=== PATIENT | male | born 1935 | race Asian ===

== ENCOUNTER 2023-04-09 12:41 | Inpatient (IN) | payer MEDICARE ==
[~2023-04-09] VITALS: Ht 165.1 cm; Wt 49.9 kg
[2023-04-09 13:48] LABS: BASOPHILS # (AUTO) 0.1 K/uL (0.0-0.2); BASOPHILS % (AUTO) 1.4 % (0.0-2.0); EOSINOPHILS # (AUTO) 0.2 K/uL (0.0-0.7); EOSINOPHILS % (AUTO) 3.8 % (0.0-6.0); HEMATOCRIT 31 % (39-51); HEMOGLOBIN 10.4 g/dL (13.5-17.5); LYMPHOCYTES # (AUTO) 0.7 K/uL (0.8-4.8); LYMPHOCYTES % (AUTO) 12.6 % (20.0-44.0); MEAN CORPUSCULAR HEMOGLOBIN 32 PG (26.0-33.0); MEAN CORPUSCULAR HGB CONC 34 g/dl (31.0-36.0); MEAN CORPUSCULAR VOLUME 95 fL (80-96); MONOCYTES # (AUTO) 0.2 K/uL (0.1-1.30); MONOCYTES % (AUTO) 4.4 % (2.0-12.0); NEUTROPHILS # (AUTO) 4.1 K/uL (1.8-8.9); NEUTROPHILS % (AUTO) 77.8 % (43.0-81.0); PLATELET COUNT (AUTO) 204 K/uL (150-450); RED BLOOD CELL COUNT(AUTO) 3.22 MIL/uL (4.5-6.0); RED CELL DISTRIBUTION WIDTH 15.2 % (11.5-15.0); WHITE BLOOD COUNT (AUTO) 5.2 K/uL (4.3-11.0)
[2023-04-09 14:00] LABS: INR 1.03 (0.91-1.10); PARTIAL THROMBOPLASTIN TIME 27.5 SEC (24.3-34.3); PROTHROMBIN TIME 10.9 SECS (9.2-11.1)
[2023-04-09 14:03] LABS: CALCIUM, SERUM 8.9 mg/dL (8.5-10.1); CARBON DIOXIDE 25 mmol/L (21-32); CHLORIDE 103 mmol/L (98-107); GLUCOSE 127 mg/dL (74-106); POTASSIUM 3.8 mmol/L (3.5-5.1); SODIUM SERUM 135 mmol/L (136-145); UREA NITROGEN, BLOOD 28 mg/dL (7-18)
[2023-04-09] MEDS ORDERED: RAMI10CA69 PO (15:13)
[2023-04-09] MEDS ORDERED: ASPI-1169 PO (15:13)
[2023-04-09] MEDS ORDERED: POLY17PO4 PO (15:13)
[2023-04-09] MEDS ORDERED: SPIR25TA6 PO (15:13)
[2023-04-09] MEDS ORDERED: CALC500T52 PO (15:13)
[2023-04-09] MEDS ORDERED: METO25TA20 PO (15:13)
[2023-04-09] MEDS ORDERED: OMEG1CAP PO (15:13)
[2023-04-09] MEDS ORDERED: MULT-447 PO (15:13)
[2023-04-09] MEDS ORDERED: FLAX100032 PO (15:13)
[2023-04-09] MEDS ORDERED: ROSU20TA32 PO (15:13)
[2023-04-09] MEDS ORDERED: IBUP200C5 PO (15:13)
[2023-04-09] MEDS ORDERED: DOCU-141 PO (15:13)
[2023-04-09] MEDS ORDERED: AMLO2.5T4 PO (15:13)
[2023-04-09] MEDS ORDERED: MORPHINE SULFATE INJ 2 MG/ML DISP.SYRIN ONE (16:53)
[2023-04-09] MEDS: MORPHINE SULFATE INJ 2 MG/ML DISP.SYRIN IV ONE (17:14)
[2023-04-09] MEDS ORDERED: MAG HYDROX/AL HYDROX/SIMETH 30 ML UDC PO PRN (18:00)
[2023-04-09] MEDS ORDERED: ONDANSETRON HCL/PF 4 MG/2 ML VIAL IVP PRN (18:00)
[2023-04-09] MEDS ORDERED: MAGNESIUM HYDROXIDE 30 ML UDC PO PRN (18:00)
[2023-04-09] MEDS ORDERED: hydrALAZINE HCL IV 20 MG VIAL IV PRN (18:00)
[2023-04-09] MEDS: ATORVASTATIN 40 MG TABLET PO SCH (18:30)
[2023-04-09 20:20] VITALS: BP 141/79; TEMP 97.3; O2SAT 97
[2023-04-09 20:30] VITALS: BP 141/79; TEMP 97.3; O2SAT 97
[2023-04-09] MEDS: AMLODIPINE BESYLATE 5 MG TABLET PO SCH (22:00)
[2023-04-10] VITALS: BP 123/76; TEMP 97.7; O2SAT 98
[2023-04-10] MEDS: MORPHINE SULFATE INJ 2 MG/ML DISP.SYRIN IV PRN (00:19)
[2023-04-10] MEDS: ACETAMINOPHEN 325 MG TABLET PO PRN (03:20)
[2023-04-10 04:00] VITALS: BP 144/80; TEMP 98.5; O2SAT 100
[2023-04-10 06:38] LABS: BASOPHILS % (AUTO) 0.2 % (0.0-2.0); EOSINOPHILS % (AUTO) 0.2 % (0.0-6.0); HEMATOCRIT 25 % (39-51); HEMOGLOBIN 8.4 g/dL (13.5-17.5); LYMPHOCYTES # (AUTO) 0.3 K/uL (0.8-4.8); LYMPHOCYTES % (AUTO) 5.1 % (20.0-44.0); MEAN CORPUSCULAR HEMOGLOBIN 32 PG (26.0-33.0); MEAN CORPUSCULAR HGB CONC 34 g/dl (31.0-36.0); MEAN CORPUSCULAR VOLUME 94 fL (80-96); MONOCYTES # (AUTO) 0.6 K/uL (0.1-1.30); MONOCYTES % (AUTO) 9.3 % (2.0-12.0); NEUTROPHILS # (AUTO) 5.1 K/uL (1.8-8.9); NEUTROPHILS % (AUTO) 85.2 % (43.0-81.0); PLATELET COUNT (AUTO) 180 K/uL (150-450); RED BLOOD CELL COUNT(AUTO) 2.66 MIL/uL (4.5-6.0)
[2023-04-10 07:00] VITALS: BP 112/67; TEMP 98.2; O2SAT 99
[2023-04-10 07:02] LABS: ALBUMIN 2.7 g/dL (3.4-5.0); BILIRUBIN,TOTAL 0.4 mg/dL (0.2-1.0); CALCIUM, SERUM 8.7 mg/dL (8.5-10.1); CREATININE 0.9 mg/dL (0.6-1.3); MAGNESIUM 1.9 mg/dL (1.8-2.4); PHOSPHORUS 3.5 mg/dL (2.5-4.9); POTASSIUM 4.3 mmol/L (3.5-5.1); TOTAL PROTEIN, SERUM 5.6 g/dL (6.4-8.2)
[2023-04-10] MEDS: CALCIUM CARBONATE (1250) 500 MG TABLET PO SCH (08:50)
[2023-04-10] MEDS: ASPIRIN 81 MG TAB.CHEW PO SCH (08:50)
[2023-04-10] MEDS: SPIRONOLACTONE 25 MG TABLET PO SCH (08:50)
[2023-04-10] MEDS: DOCUSATE SODIUM LIQ 100 MG/10 ML UDC PO SCH (08:51)
[2023-04-10] MEDS: METOPROLOL TARTRATE 25 MG TABLET PO SCH (08:51)
[2023-04-10] MEDS: POLYETHYLENE GLYCOL 3350 17 GM POWD.PACK PO SCH (08:51)
[2023-04-10] MEDS: LISINOPRIL (20MG) 20 MG TABLET PO SCH (08:52)
[2023-04-10] MEDS ORDERED: Medication Not On Formulary EA (Omega-3 Fatty Acids/Fish Oil (Fish Oil 1,000 Mg Capsule) PO SCH (09:00)
[2023-04-10] MEDS: IV NS 0.9% 1,000 ML IV PRN (10:12)
[2023-04-10 11:30] VITALS: BP 118/54; TEMP 97.5; O2SAT 95
[2023-04-10 16:00] VITALS: BP 142/75; TEMP 97.7; O2SAT 100
[2023-04-10 16:24] VITALS: BP 142/75
[2023-04-10] MEDS ORDERED: HEPARIN SODIUM, PORCINE 5000 UNITS/1 ML VIAL SQ SCH (21:00)
== END 2023-04-10 20:00 | disposition short-term general hospital (02) | DRG 536 ==
LOC: ER 12:43 → MED 20:06 → TELE 20:21 → MED 04-10 10:35
PROVIDERS: ADMIT Internal Medicine; ATTEND Internal Medicine
DX: S72.142A Displaced intertrochanteric fracture of left femur, initial encounter for closed fracture (principal); E44.1 Mild protein-calorie malnutrition; Z68.1 Body mass index [BMI] 19.9 or less, adult; W01.0XXA Fall on same level from slipping, tripping and stumbling without subsequent striking against object, initial encounter; D64.9 Anemia, unspecified; E78.5 Hyperlipidemia, unspecified; I10 Essential (primary) hypertension; I25.10 Atherosclerotic heart disease of native coronary artery without angina pectoris; Z95.1 Presence of aortocoronary bypass graft; Y93.9 Activity, unspecified; Y92.009 Unspecified place in unspecified non-institutional (private) residence as the place of occurrence of the external cause; Z20.822 Contact with and (suspected) exposure to COVID-19
CPT/HCPCS: 36415; 71045-TC; 73502; 80048-TC; 80053-TC; 83735-TC; 84100-TC; 84484-TC; 85025-TC; 85027-TC; 85730-TC; 87081-TC; 93307-TC; A4223; G0378; J2270; J7030

== ENCOUNTER 2023-07-09 21:35 | Inpatient (IN) | payer MEDICARE, BC ==
[~2023-07-09] VITALS: Ht 165.1 cm; Wt 52.2 kg
[2023-07-09] MEDS: CEFEPIME 2 GM in IV NS 0.9% 100 ML IV ONE (00:30)
[~2023-07-09 21:35] MED LIST: AMLO2.5T4 PO; ASPI-1169 PO; CALC500T52 PO; DOCU-141 PO; FLAX100032 PO; IBUP200C5 PO; METO25TA20 PO; MULT-447 PO; OMEG1CAP PO; POLY17PO4 PO; RAMI10CA69 PO; ROSU20TA32 PO; SPIR25TA6 PO
[2023-07-09] MEDS: VANCOMYCIN 1 GM in IV D5W 250 ML IV ONE (22:00)
[2023-07-09 22:06] LABS: BASOPHILS % (AUTO) 0.8 % (0.0-2.0); EOSINOPHILS # (AUTO) 0.2 K/uL (0.0-0.7); EOSINOPHILS % (AUTO) 3.4 % (0.0-6.0); HEMATOCRIT 33 % (39-51); LYMPHOCYTES # (AUTO) 1.6 K/uL (0.8-4.8); LYMPHOCYTES % (AUTO) 26.5 % (20.0-44.0); MEAN CORPUSCULAR HEMOGLOBIN 32 PG (26.0-33.0); MEAN CORPUSCULAR HGB CONC 34 g/dl (31.0-36.0); MEAN CORPUSCULAR VOLUME 95 fL (80-96); MONOCYTES # (AUTO) 0.6 K/uL (0.1-1.30); MONOCYTES % (AUTO) 9.4 % (2.0-12.0); NEUTROPHILS # (AUTO) 3.6 K/uL (1.8-8.9); NEUTROPHILS % (AUTO) 59.9 % (43.0-81.0); PLATELET COUNT (AUTO) 275 K/uL (150-450); RED BLOOD CELL COUNT(AUTO) 3.42 MIL/uL (4.5-6.0); WHITE BLOOD COUNT (AUTO) 5.9 K/uL (4.3-11.0)
[2023-07-09 22:18] LABS: INR 1.06 (0.91-1.10); PARTIAL THROMBOPLASTIN TIME 37.7 SEC (24.3-34.3); PROTHROMBIN TIME 10.9 SECS (9.2-11.1)
[2023-07-09 22:25] LABS: LACTIC ACID 0.9 mmol/L (0.4-2.0)
[2023-07-09] MEDS ORDERED: AZITHROMYCIN 500 MG VIAL ONE (22:26)
[2023-07-09] MEDS ORDERED: ACETAMINOPHEN ES 500 MG TABLET ONE (22:26)
[2023-07-09] MEDS ORDERED: PIPERACI/TAZO 3.375GM/D5W 50ML PB IV ONE (22:26)
[2023-07-09 22:42] LABS: ALANINE AMINOTRANSFERASE 34 U/L (12-78); ALBUMIN 2.9 g/dL (3.4-5.0); ALKALINE PHOSPHATASE 111 U/L (46-116); ASPARTATE AMINOTRANSFERASE 45 U/L (15-37); BILIRUBIN,DIRECT 0.2 mg/dL (0.0-0.2); BILIRUBIN,TOTAL 0.6 mg/dL (0.2-1.0); CALCIUM, SERUM 9.7 mg/dL (8.5-10.1); CARBON DIOXIDE 18 mmol/L (21-32); CHLORIDE 84 mmol/L (98-107); CREATININE 1.4 mg/dL (0.6-1.3); GLUCOSE 55 mg/dL (74-106); POTASSIUM 5.3 mmol/L (3.5-5.1); TOTAL PROTEIN, SERUM 6.3 g/dL (6.4-8.2); UREA NITROGEN, BLOOD 26 mg/dL (7-18)
[2023-07-09 22:43] LABS: SODIUM SERUM 115 mmol/L (136-145)
[2023-07-09 22:46] LABS: APPEARANCE,URINE CLEAR (CLEAR); BILIRUBIN,URINE NEGATIVE (NEGATIVE); BLOOD, URINE TRACE-INTA Ery/uL (NEGATIVE); COLOR,URINE YELLOW (YELLOW); KETONES,URINE NEGATIVE (NEGATIVE); LEUKOCYTE ESTERASE ,URINE TRACE (NEGATIVE); NITRITE, URINE NEGATIVE (NEGATIVE); PROTEIN,URINE NEGATIVE (NEGATIVE); UGLUCOSE NEGATIVE (NEGATIVE); UROBILINOGEN,URINE 0.2 EU/dL (0.2)
[2023-07-09] MEDS: ACETAMINOPHEN ES 500 MG TABLET PO ONE (22:55)
[2023-07-09] MEDS: PIPERACILLIN /TAZOBACTAM 3.375 G in IV D5W 50 ML IV ONE (22:56)
[2023-07-09] MEDS: IV NS 0.9% 1,000 ML BAG IV ONE (22:56)
[2023-07-09] MEDS: AZITHROMYCIN 500 MG in IV D5W 250 ML IV ONE (22:56)
[2023-07-09] MEDS ORDERED: ONDANSETRON HCL/PF 4 MG/2 ML VIAL IVP PRN (23:00)
[2023-07-09] MEDS ORDERED: hydrALAZINE HCL IV 20 MG VIAL IV PRN (23:00)
[2023-07-09] MEDS ORDERED: MORPHINE SULFATE INJ 2 MG/ML DISP.SYRIN IV PRN (23:00)
[2023-07-09] MEDS: IV Sodium Chloride 3% 500 ML 100 ML IV ONE (23:07)
[2023-07-09] MEDS ORDERED: DEXTROSE 50%-WATER 50 ML DISP.SYRIN ONE (23:09)
[2023-07-09] MEDS: DEXTROSE 50%-WATER 50 ML DISP.SYRIN IVP ONE (23:18)
[2023-07-09 23:30] LABS: ADD URINE CULTURE NO; BACTERIA,URINE None seen /HPF (None Seen); RBC,URINE 0-2 /HPF (0-2)
[2023-07-09] MEDS: IV NS 0.9% 1,000 ML IV ONE (23:52)
[2023-07-09] MEDS ORDERED: VANCOMYCIN 1 GM /D5W 250 ML PB IV ONE (23:56)
[2023-07-10] MEDS: IV NS 0.9% 1,000 ML IV SCH (02:43)
[2023-07-10] MEDS: APIXABAN 2.5 MG TABLET PO SCH (03:22)
[2023-07-10] MEDS ORDERED: CEFEPIME 1 GM VIAL ONE (03:35)
[2023-07-10 04:00] VITALS: TEMP 98
[2023-07-10 05:05] VITALS: BP 99/60; TEMP 98.6; O2SAT 94
[2023-07-10 07:32] LABS: BASOPHILS % (AUTO) 0.8 % (0.0-2.0); EOSINOPHILS # (AUTO) 0.2 K/uL (0.0-0.7); EOSINOPHILS % (AUTO) 5.3 % (0.0-6.0); HEMATOCRIT 29 % (39-51); HEMOGLOBIN 9.8 g/dL (13.5-17.5); LYMPHOCYTES # (AUTO) 0.6 K/uL (0.8-4.8); LYMPHOCYTES % (AUTO) 15.7 % (20.0-44.0); MEAN CORPUSCULAR HEMOGLOBIN 33 PG (26.0-33.0); MEAN CORPUSCULAR HGB CONC 34 g/dl (31.0-36.0); MEAN CORPUSCULAR VOLUME 97 fL (80-96); MONOCYTES # (AUTO) 0.4 K/uL (0.1-1.30); MONOCYTES % (AUTO) 9.9 % (2.0-12.0); NEUTROPHILS # (AUTO) 2.4 K/uL (1.8-8.9); NEUTROPHILS % (AUTO) 68.3 % (43.0-81.0); PLATELET COUNT (AUTO) 224 K/uL (150-450); RED BLOOD CELL COUNT(AUTO) 2.95 MIL/uL (4.5-6.0); RED CELL DISTRIBUTION WIDTH 16.4 % (11.5-15.0); WHITE BLOOD COUNT (AUTO) 3.6 K/uL (4.3-11.0)
[2023-07-10 07:43] LABS: ALBUMIN 2.1 g/dL (3.4-5.0); BILIRUBIN,TOTAL 0.5 mg/dL (0.2-1.0); CALCIUM, SERUM 8.4 mg/dL (8.5-10.1); CREATININE 1.1 mg/dL (0.6-1.3); MAGNESIUM 1.5 mg/dL (1.8-2.4); PHOSPHORUS 4.1 mg/dL (2.5-4.9); POTASSIUM 4.5 mmol/L (3.5-5.1); TOTAL PROTEIN, SERUM 5.4 g/dL (6.4-8.2)
[2023-07-10 08:00] VITALS: BP 124/66; TEMP 97.7; O2SAT 100
[2023-07-10] MEDS ORDERED: ACET-637 PO (08:29)
[2023-07-10] MEDS ORDERED: AMIO200T5 PO (08:29)
[2023-07-10] MEDS ORDERED: DIVA125T32 PO (08:29)
[2023-07-10] MEDS ORDERED: LEVO75TA7 PO (08:29)
[2023-07-10] MEDS ORDERED: PANT40TA49 PO (08:29)
[2023-07-10] MEDS ORDERED: POTA10TA10 PO (08:29)
[2023-07-10] MEDS ORDERED: APIX2.5T PO (08:29)
[2023-07-10] MEDS ORDERED: ONDA-97 PO (08:29)
[2023-07-10] MEDS ORDERED: MIRT7.5T10 PO (08:29)
[2023-07-10] MEDS ORDERED: ERGO500093 PO (08:29)
[2023-07-10] MEDS ORDERED: MELA1TAB15 PO (08:29)
[2023-07-10] MEDS ORDERED: HYDR25SU33 RC (08:29)
[2023-07-10] MEDS ORDERED: CALC-953 PO (08:29)
[2023-07-10] MEDS ORDERED: ASPI-1420 PO (08:29)
[2023-07-10] MEDS ORDERED: PANT20TA17 PO (08:30)
[2023-07-10] MEDS: CALCIUM CARBONATE (1250) 500 MG TABLET PO SCH (08:37)
[2023-07-10] MEDS: METOPROLOL TARTRATE 25 MG TABLET PO SCH (08:38)
[2023-07-10] MEDS: ASPIRIN 81 MG TAB.CHEW PO SCH (08:44)
[2023-07-10] MEDS ORDERED: SPIRONOLACTONE 25 MG TABLET PO SCH (09:00)
[2023-07-10] MEDS: MAGNESIUM OXIDE 400 MG TABLET PO ONE (11:24)
[2023-07-10] MEDS: CEFEPIME 2 GM in IV D5W 100 ML IV SCH (11:25)
[2023-07-10 12:00] VITALS: BP 122/92; TEMP 98.6; O2SAT 100
[2023-07-10 16:00] VITALS: BP 111/64; TEMP 99.1; O2SAT 98
[2023-07-10] MEDS: ATORVASTATIN 40 MG TABLET PO SCH (17:05)
[2023-07-10 20:00] VITALS: BP 130/49; TEMP 100.2; O2SAT 97
[2023-07-10] MEDS: ACETAMINOPHEN 325 MG TABLET PO PRN (21:09)
[2023-07-10] MEDS: AMLODIPINE BESYLATE 2.5 MG TABLET PO SCH (21:13)
[2023-07-10] MEDS: VANCOMYCIN 1 GM in IV D5W 250 ML IV SCH (22:16)
[2023-07-10] MEDS ORDERED: IV Sodium Chloride 3% 500 ML 500 ML IV ONE (23:42)
[2023-07-11] VITALS (8 sets, daily range): BP systolic 100–138; BP diastolic 47–65; TEMP 97.5–98.6; O2SAT 94–97
[2023-07-11] MEDS: IV Sodium Chloride 3% 500 ML 500 ML IV SCH (00:43)
[2023-07-11 02:55] LABS: ALANINE AMINOTRANSFERASE 48 U/L (12-78); ALBUMIN 1.8 g/dL (3.4-5.0); ALKALINE PHOSPHATASE 88 U/L (46-116); ASPARTATE AMINOTRANSFERASE 66 U/L (15-37); BILIRUBIN,TOTAL 0.5 mg/dL (0.2-1.0); CALCIUM, SERUM 8.7 mg/dL (8.5-10.1); CARBON DIOXIDE 18 mmol/L (21-32); CHLORIDE 93 mmol/L (98-107); GLUCOSE 92 mg/dL (74-106); MAGNESIUM 1.4 mg/dL (1.8-2.4); PHOSPHORUS 3.7 mg/dL (2.5-4.9); TOTAL PROTEIN, SERUM 4.9 g/dL (6.4-8.2); UREA NITROGEN, BLOOD 18 mg/dL (7-18)
[2023-07-11 02:58] LABS: CREATINE KINASE, TOTAL 249 U/L (39-308)
[2023-07-11 03:09] LABS: SODIUM SERUM 118 mmol/L (136-145)
[2023-07-11 03:15] LABS: BASOPHILS # (AUTO) 0.1 K/uL (0.0-0.2); BASOPHILS % (AUTO) 1.6 % (0.0-2.0); EOSINOPHILS # (AUTO) 0.2 K/uL (0.0-0.7); EOSINOPHILS % (AUTO) 5.1 % (0.0-6.0); HEMATOCRIT 27 % (39-51); HEMOGLOBIN 9.1 g/dL (13.5-17.5); LYMPHOCYTES # (AUTO) 0.4 K/uL (0.8-4.8); LYMPHOCYTES % (AUTO) 8.6 % (20.0-44.0); MEAN CORPUSCULAR HEMOGLOBIN 33 PG (26.0-33.0); MEAN CORPUSCULAR HGB CONC 34 g/dl (31.0-36.0); MEAN CORPUSCULAR VOLUME 98 fL (80-96); MONOCYTES # (AUTO) 0.4 K/uL (0.1-1.30); MONOCYTES % (AUTO) 7.5 % (2.0-12.0); NEUTROPHILS # (AUTO) 3.6 K/uL (1.8-8.9); NEUTROPHILS % (AUTO) 77.2 % (43.0-81.0); PLATELET COUNT (AUTO) 206 K/uL (150-450); RED BLOOD CELL COUNT(AUTO) 2.74 MIL/uL (4.5-6.0); RED CELL DISTRIBUTION WIDTH 16.8 % (11.5-15.0); WHITE BLOOD COUNT (AUTO) 4.7 K/uL (4.3-11.0)
[2023-07-11] MEDS ORDERED: IV Sodium Chloride 3% 500 ML 500 ML IV SCH (07:00)
[2023-07-11] MEDS: MAGNESIUM OXIDE 400 MG TABLET PO ONE (09:21)
[2023-07-11 14:35] LABS: CALCIUM, SERUM 8.8 mg/dL (8.5-10.1); CREATININE 0.9 mg/dL (0.6-1.3)
[2023-07-12] VITALS (8 sets, daily range): BP systolic 104–119; BP diastolic 53–69; TEMP 97.7–98; O2SAT 95–98
[2023-07-12 07:12] LABS: BASOPHILS % (AUTO) 0.3 % (0.0-2.0); EOSINOPHILS # (AUTO) 0.3 K/uL (0.0-0.7); HEMATOCRIT 28 % (39-51); HEMOGLOBIN 9.6 g/dL (13.5-17.5); LYMPHOCYTES # (AUTO) 0.7 K/uL (0.8-4.8); LYMPHOCYTES % (AUTO) 14.4 % (20.0-44.0); MEAN CORPUSCULAR HEMOGLOBIN 33 PG (26.0-33.0); MEAN CORPUSCULAR HGB CONC 35 g/dl (31.0-36.0); MEAN CORPUSCULAR VOLUME 96 fL (80-96); MONOCYTES # (AUTO) 0.4 K/uL (0.1-1.30); MONOCYTES % (AUTO) 7.2 % (2.0-12.0); NEUTROPHILS # (AUTO) 3.6 K/uL (1.8-8.9); NEUTROPHILS % (AUTO) 72.1 % (43.0-81.0); PLATELET COUNT (AUTO) 246 K/uL (150-450); RED CELL DISTRIBUTION WIDTH 16.1 % (11.5-15.0)
[2023-07-12 08:11] LABS: PTH, INTACT 5 pg/mL (15-65)
[2023-07-12 08:11] LABS: CALCIUM, SERUM 8.5 mg/dL (8.5-10.1); CARBON DIOXIDE 20 mmol/L (21-32); CHLORIDE 93 mmol/L (98-107); CREATININE 0.9 mg/dL (0.6-1.3); GLUCOSE 90 mg/dL (74-106); MAGNESIUM 1.6 mg/dL (1.8-2.4); PHOSPHORUS 2.9 mg/dL (2.5-4.9); POTASSIUM 4.1 mmol/L (3.5-5.1); SODIUM SERUM 122 mmol/L (136-145); UREA NITROGEN, BLOOD 13 mg/dL (7-18)
[2023-07-12] MEDS: Magnesium 1GM/D5W 100ML PREMIX 100 ML IV SCH (10:08)
[2023-07-12 11:08] LABS: *SPE A/G RATIO 0.7 (0.7-1.7); *SPE ALBUMIN 1.9 g/dL (2.9-4.4); *SPE ALPHA-1-GLOBULIN 0.3 g/dL (0.0-0.4); *SPE ALPHA-2-GLOBULIN 0.6 g/dL (0.4-1.0); *SPE BETA GLOBULIN 0.5 g/dL (0.7-1.3); *SPE GLOBULIN, TOTAL 2.6 g/dL (2.2-3.9); *SPE M-SPIKE 0.6 g/dL (Not Observed); *SPE PROTEIN TOTAL 4.5 g/dL (6.0-8.5); *SPEGAMMA GLOBULIN 1.2 g/dL (0.4-1.8)
[2023-07-12] MEDS: ENSURE ENLIVE 237 ML LIQUID (VANILLA) PO SCH (12:34)
[2023-07-13] VITALS (8 sets, daily range): BP systolic 101–136; BP diastolic 54–78; TEMP 97–99.1; O2SAT 92–98
[2023-07-13 08:48] LABS: BASOPHILS % (AUTO) 0.4 % (0.0-2.0); EOSINOPHILS # (AUTO) 0.3 K/uL (0.0-0.7); EOSINOPHILS % (AUTO) 6.2 % (0.0-6.0); HEMATOCRIT 28 % (39-51); HEMOGLOBIN 9.8 g/dL (13.5-17.5); LYMPHOCYTES # (AUTO) 0.7 K/uL (0.8-4.8); LYMPHOCYTES % (AUTO) 13.3 % (20.0-44.0); MEAN CORPUSCULAR HEMOGLOBIN 34 PG (26.0-33.0); MEAN CORPUSCULAR HGB CONC 35 g/dl (31.0-36.0); MEAN CORPUSCULAR VOLUME 96 fL (80-96); MONOCYTES # (AUTO) 0.4 K/uL (0.1-1.30); MONOCYTES % (AUTO) 7.5 % (2.0-12.0); NEUTROPHILS # (AUTO) 3.8 K/uL (1.8-8.9); NEUTROPHILS % (AUTO) 72.6 % (43.0-81.0); PLATELET COUNT (AUTO) 258 K/uL (150-450); RED BLOOD CELL COUNT(AUTO) 2.91 MIL/uL (4.5-6.0); RED CELL DISTRIBUTION WIDTH 16.1 % (11.5-15.0); WHITE BLOOD COUNT (AUTO) 5.2 K/uL (4.3-11.0)
[2023-07-13 09:42] LABS: CALCIUM, SERUM 9.6 mg/dL (8.5-10.1); CARBON DIOXIDE 22 mmol/L (21-32); CHLORIDE 91 mmol/L (98-107); GLUCOSE 117 mg/dL (74-106); PHOSPHORUS 3.3 mg/dL (2.5-4.9); POTASSIUM 4.2 mmol/L (3.5-5.1); UREA NITROGEN, BLOOD 15 mg/dL (7-18)
[2023-07-13 09:48] LABS: SODIUM SERUM 119 mmol/L (136-145)
[2023-07-13] MEDS ORDERED: IV Sodium Chloride 3% 500 ML 500 ML IV PRN (11:00)
[2023-07-13] MEDS: IV Sodium Chloride 3% 500 ML 500 ML IV SCH (12:20)
[2023-07-13 12:33] LABS: MAGNESIUM 1.8 mg/dL (1.8-2.4); PHOSPHORUS 3.5 mg/dL (2.5-4.9)
[2023-07-13 12:43] LABS: CALCIUM, SERUM 9.4 mg/dL (8.5-10.1); CARBON DIOXIDE 22 mmol/L (21-32); CHLORIDE 91 mmol/L (98-107); GLUCOSE 103 mg/dL (74-106); POTASSIUM 4.3 mmol/L (3.5-5.1); UREA NITROGEN, BLOOD 15 mg/dL (7-18)
[2023-07-13 12:58] LABS: SODIUM SERUM 119 mmol/L (136-145)
[2023-07-13 13:35] LABS: THYROID STIMULATING HORMONE 0.454 uIU/mL (0.358-3.74)
[2023-07-13 16:49] LABS: CALCIUM, SERUM 9.7 mg/dL (8.5-10.1); CARBON DIOXIDE 22 mmol/L (21-32); CHLORIDE 92 mmol/L (98-107); CREATININE 1.1 mg/dL (0.6-1.3); GLUCOSE 96 mg/dL (74-106); POTASSIUM 4.1 mmol/L (3.5-5.1); SODIUM SERUM 120 mmol/L (136-145); UREA NITROGEN, BLOOD 16 mg/dL (7-18)
[2023-07-13 17:18] LABS: URIC ACID 3.3 mg/dL (2.6-7.2)
[2023-07-14] VITALS: BP 124/66; TEMP 98.6; O2SAT 96
[2023-07-14 04:00] VITALS: BP 117/57; TEMP 98.6; O2SAT 94
[2023-07-14 08:00] VITALS: BP 117/72; TEMP 97.6; O2SAT 95
[2023-07-14 08:38] LABS: BASOPHILS % (AUTO) 0.5 % (0.0-2.0); EOSINOPHILS # (AUTO) 0.4 K/uL (0.0-0.7); EOSINOPHILS % (AUTO) 6.6 % (0.0-6.0); HEMATOCRIT 27 % (39-51); LYMPHOCYTES # (AUTO) 0.5 K/uL (0.8-4.8); LYMPHOCYTES % (AUTO) 9.5 % (20.0-44.0); MEAN CORPUSCULAR HEMOGLOBIN 33 PG (26.0-33.0); MEAN CORPUSCULAR HGB CONC 34 g/dl (31.0-36.0); MEAN CORPUSCULAR VOLUME 96 fL (80-96); MONOCYTES # (AUTO) 0.4 K/uL (0.1-1.30); MONOCYTES % (AUTO) 7.3 % (2.0-12.0); NEUTROPHILS # (AUTO) 4.1 K/uL (1.8-8.9); NEUTROPHILS % (AUTO) 76.1 % (43.0-81.0); PLATELET COUNT (AUTO) 261 K/uL (150-450); RED BLOOD CELL COUNT(AUTO) 2.77 MIL/uL (4.5-6.0); RED CELL DISTRIBUTION WIDTH 16.2 % (11.5-15.0); WHITE BLOOD COUNT (AUTO) 5.4 K/uL (4.3-11.0)
[2023-07-14 09:13] LABS: CALCIUM, SERUM 9.1 mg/dL (8.5-10.1); CARBON DIOXIDE 23 mmol/L (21-32); CHLORIDE 97 mmol/L (98-107); GLUCOSE 76 mg/dL (74-106); MAGNESIUM 1.7 mg/dL (1.8-2.4); PHOSPHORUS 3.7 mg/dL (2.5-4.9); POTASSIUM 3.9 mmol/L (3.5-5.1); SODIUM SERUM 125 mmol/L (136-145); UREA NITROGEN, BLOOD 14 mg/dL (7-18)
[2023-07-14] MEDS: SODIUM CHLORIDE 1000 MG TABLET PO SCH (09:29)
[2023-07-14 12:00] VITALS: BP 117/82; TEMP 98.2; O2SAT 99
[2023-07-14 16:00] VITALS: BP 136/60; TEMP 98.2; O2SAT 99
[2023-07-14 20:00] VITALS: BP 115/87; TEMP 99; O2SAT 97
[2023-07-15] VITALS: BP 124/59; TEMP 99; O2SAT 98
[2023-07-15 04:00] VITALS: BP 118/52; TEMP 98.9; O2SAT 98
[2023-07-15 07:47] LABS: BASOPHILS % (AUTO) 0.5 % (0.0-2.0); EOSINOPHILS # (AUTO) 0.3 K/uL (0.0-0.7); EOSINOPHILS % (AUTO) 5.8 % (0.0-6.0); HEMATOCRIT 26 % (39-51); HEMOGLOBIN 8.7 g/dL (13.5-17.5); LYMPHOCYTES # (AUTO) 0.6 K/uL (0.8-4.8); LYMPHOCYTES % (AUTO) 10.5 % (20.0-44.0); MEAN CORPUSCULAR HEMOGLOBIN 33 PG (26.0-33.0); MEAN CORPUSCULAR HGB CONC 34 g/dl (31.0-36.0); MEAN CORPUSCULAR VOLUME 96 fL (80-96); MONOCYTES # (AUTO) 0.5 K/uL (0.1-1.30); MONOCYTES % (AUTO) 8.4 % (2.0-12.0); NEUTROPHILS # (AUTO) 4.4 K/uL (1.8-8.9); NEUTROPHILS % (AUTO) 74.8 % (43.0-81.0); PLATELET COUNT (AUTO) 263 K/uL (150-450); RED BLOOD CELL COUNT(AUTO) 2.66 MIL/uL (4.5-6.0); RED CELL DISTRIBUTION WIDTH 16.2 % (11.5-15.0); WHITE BLOOD COUNT (AUTO) 5.8 K/uL (4.3-11.0)
[2023-07-15 08:00] VITALS: BP 120/72; TEMP 98.4; O2SAT 98
[2023-07-15 08:43] LABS: CALCIUM, SERUM 9.3 mg/dL (8.5-10.1); CARBON DIOXIDE 19 mmol/L (21-32); CHLORIDE 98 mmol/L (98-107); CREATININE 1.2 mg/dL (0.6-1.3); GLUCOSE 64 mg/dL (74-106); MAGNESIUM 1.8 mg/dL (1.8-2.4); PHOSPHORUS 3.7 mg/dL (2.5-4.9); POTASSIUM 3.7 mmol/L (3.5-5.1); SODIUM SERUM 127 mmol/L (136-145); UREA NITROGEN, BLOOD 17 mg/dL (7-18)
[2023-07-15] MEDS: DEMECLOCYCLINE HCL 150 MG TABLET PO SCH (10:10)
[2023-07-15 12:00] VITALS: BP 123/53; TEMP 97.3; O2SAT 99
[2023-07-15 16:00] VITALS: BP 117/57; TEMP 99.3; O2SAT 99
[2023-07-15 20:00] VITALS: BP 108/46; TEMP 98.6
[2023-07-16] VITALS (9 sets, daily range): BP systolic 94–118; BP diastolic 61–91; TEMP 97.9–98.6; O2SAT 91–98
[2023-07-16 07:56] LABS: CALCIUM, SERUM 9.7 mg/dL (8.5-10.1); CARBON DIOXIDE 18 mmol/L (21-32); CHLORIDE 100 mmol/L (98-107); CREATININE 1.5 mg/dL (0.6-1.3); GLUCOSE 51 mg/dL (74-106); PHOSPHORUS 4.6 mg/dL (2.5-4.9); POTASSIUM 4.1 mmol/L (3.5-5.1); SODIUM SERUM 128 mmol/L (136-145); UREA NITROGEN, BLOOD 24 mg/dL (7-18)
[2023-07-16 08:18] LABS: BASOPHILS % (AUTO) 0.5 % (0.0-2.0); EOSINOPHILS # (AUTO) 0.3 K/uL (0.0-0.7); EOSINOPHILS % (AUTO) 3.7 % (0.0-6.0); HEMATOCRIT 26 % (39-51); HEMOGLOBIN 8.8 g/dL (13.5-17.5); LYMPHOCYTES # (AUTO) 0.5 K/uL (0.8-4.8); LYMPHOCYTES % (AUTO) 6.5 % (20.0-44.0); MEAN CORPUSCULAR HEMOGLOBIN 33 PG (26.0-33.0); MEAN CORPUSCULAR HGB CONC 34 g/dl (31.0-36.0); MEAN CORPUSCULAR VOLUME 96 fL (80-96); MONOCYTES # (AUTO) 0.5 K/uL (0.1-1.30); MONOCYTES % (AUTO) 7.3 % (2.0-12.0); PLATELET COUNT (AUTO) 286 K/uL (150-450); RED BLOOD CELL COUNT(AUTO) 2.69 MIL/uL (4.5-6.0); RED CELL DISTRIBUTION WIDTH 15.9 % (11.5-15.0); WHITE BLOOD COUNT (AUTO) 7.4 K/uL (4.3-11.0)
[2023-07-17] VITALS (29 sets, daily range): BP systolic 82–129; BP diastolic 32–113; TEMP 96.7–98.4; O2SAT 82–100
[2023-07-17 06:54] LABS: BASOPHILS % (AUTO) 0.4 % (0.0-2.0); EOSINOPHILS # (AUTO) 0.5 K/uL (0.0-0.7); EOSINOPHILS % (AUTO) 6.4 % (0.0-6.0); HEMATOCRIT 27 % (39-51); HEMOGLOBIN 9.1 g/dL (13.5-17.5); LYMPHOCYTES # (AUTO) 0.8 K/uL (0.8-4.8); LYMPHOCYTES % (AUTO) 10.8 % (20.0-44.0); MEAN CORPUSCULAR HEMOGLOBIN 33 PG (26.0-33.0); MEAN CORPUSCULAR HGB CONC 34 g/dl (31.0-36.0); MEAN CORPUSCULAR VOLUME 97 fL (80-96); MONOCYTES # (AUTO) 0.5 K/uL (0.1-1.30); MONOCYTES % (AUTO) 6.9 % (2.0-12.0); NEUTROPHILS # (AUTO) 5.5 K/uL (1.8-8.9); NEUTROPHILS % (AUTO) 75.5 % (43.0-81.0); PLATELET COUNT (AUTO) 320 K/uL (150-450); RED BLOOD CELL COUNT(AUTO) 2.74 MIL/uL (4.5-6.0); WHITE BLOOD COUNT (AUTO) 7.2 K/uL (4.3-11.0)
[2023-07-17 07:14] LABS: CALCIUM, SERUM 9.9 mg/dL (8.5-10.1); CARBON DIOXIDE 14 mmol/L (21-32); CHLORIDE 100 mmol/L (98-107); CREATININE 1.6 mg/dL (0.6-1.3); GLUCOSE 53 mg/dL (74-106); MAGNESIUM 2.2 mg/dL (1.8-2.4); PHOSPHORUS 4.5 mg/dL (2.5-4.9); SODIUM SERUM 130 mmol/L (136-145); UREA NITROGEN, BLOOD 32 mg/dL (7-18)
[2023-07-17] MEDS: IV NS 0.9% 250 ML IV PRN (10:00)
[2023-07-17] MEDS: IV NS 0.9% 500 ML IV ONE (10:56)
[2023-07-17 11:22] LABS: ABG BASE EXCESS -9.8 mmol/L; ABG OXYGEN SATURATION 99.4 % (92.0-98.5); ABG PCO2 24.6 mmHg (35.0-45.0); ABG PH 7.377 (7.350-7.450); ABG PO2 372.8 mmHg (75.0-100.0); ABG TOTAL HEMOGLOBIN 8.8 G/dL (13.5-18.0); AaDO2 315.6 mmHg; COHb 0.1 % (0.5-1.5); MetHb 0.1 % (0.0-1.5); O2Hb 99.2 % (94.0-97.0); SITE, ABG Right Brachial; VENT MODE, BG 20 ipap / 5 epap
[2023-07-17 11:22] LABS: ABG BASE EXCESS -10.1 mmol/L; ABG PCO2 24.6 mmHg (35.0-45.0); ABG PH 7.363 (7.350-7.450); ABG PO2 62.2 mmHg (75.0-100.0); AaDO2 626.2 mmHg; COHb 0.3 % (0.5-1.5); MetHb 0.3 % (0.0-1.5); O2Hb 89.5 % (94.0-97.0); SITE, ABG Right Radial; VENT MODE, BG nonrebreather 15lpm
[2023-07-17] MEDS: MEROPENEM 500 MG in IV NS 0.9% 50 ML IV SCH (11:28)
[2023-07-17] MEDS: IV D5/ 0.9% NACL 1,000 ML IV PRN (15:04)
[2023-07-17] MEDS: DEXTROSE 50%-WATER 50 ML DISP.SYRIN IVP ONE (15:11)
[2023-07-18] VITALS (65 sets, daily range): BP systolic 70–149; BP diastolic 12–121; TEMP 96.2–96.4; O2SAT 77–100
[2023-07-18 05:39] LABS: CALCIUM, SERUM 9.6 mg/dL (8.5-10.1); CARBON DIOXIDE 18 mmol/L (21-32); CHLORIDE 105 mmol/L (98-107); GLUCOSE 152 mg/dL (74-106); POTASSIUM 3.5 mmol/L (3.5-5.1); SODIUM SERUM 133 mmol/L (136-145); UREA NITROGEN, BLOOD 34 mg/dL (7-18)
[2023-07-18] MEDS: NOREPINEPHRINE 8 MG in IV D5W 242 ML IV PRN (10:30)
[2023-07-18 11:57] LABS: ABG BASE EXCESS -9.1 mmol/L; ABG PCO2 28.9 mmHg (35.0-45.0); ABG PH 7.346 (7.350-7.450); ABG PO2 63.8 mmHg (75.0-100.0); ABG TOTAL HEMOGLOBIN 9.2 G/dL (13.5-18.0); AaDO2 332.2 mmHg; COHb 0.3 % (0.5-1.5); MetHb 0.3 % (0.0-1.5); O2Hb 89.5 % (94.0-97.0); SITE, ABG Right Radial; VENT MODE, BG 15 IPAP / 5 EPAP
[2023-07-19] VITALS (101 sets, daily range): BP systolic 79–154; BP diastolic 34–83; TEMP 95.5–97.9; O2SAT 86–100
[2023-07-19 05:27] LABS: BASOPHILS % (AUTO) 0.1 % (0.0-2.0); EOSINOPHILS # (AUTO) 0.5 K/uL (0.0-0.7); EOSINOPHILS % (AUTO) 5.5 % (0.0-6.0); HEMATOCRIT 27 % (39-51); HEMOGLOBIN 9.1 g/dL (13.5-17.5); LYMPHOCYTES # (AUTO) 0.5 K/uL (0.8-4.8); LYMPHOCYTES % (AUTO) 5.1 % (20.0-44.0); MEAN CORPUSCULAR HEMOGLOBIN 33 PG (26.0-33.0); MEAN CORPUSCULAR HGB CONC 34 g/dl (31.0-36.0); MEAN CORPUSCULAR VOLUME 97 fL (80-96); MONOCYTES # (AUTO) 0.4 K/uL (0.1-1.30); MONOCYTES % (AUTO) 4.4 % (2.0-12.0); NEUTROPHILS % (AUTO) 84.9 % (43.0-81.0); PLATELET COUNT (AUTO) 303 K/uL (150-450); RED BLOOD CELL COUNT(AUTO) 2.75 MIL/uL (4.5-6.0); RED CELL DISTRIBUTION WIDTH 16.6 % (11.5-15.0); WHITE BLOOD COUNT (AUTO) 9.4 K/uL (4.3-11.0)
[2023-07-19 06:01] LABS: CALCIUM, SERUM 9.9 mg/dL (8.5-10.1); CARBON DIOXIDE 18 mmol/L (21-32); CHLORIDE 107 mmol/L (98-107); CREATININE 2.1 mg/dL (0.6-1.3); GLUCOSE 125 mg/dL (74-106); MAGNESIUM 2.2 mg/dL (1.8-2.4); POTASSIUM 4.4 mmol/L (3.5-5.1); SODIUM SERUM 133 mmol/L (136-145); UREA NITROGEN, BLOOD 36 mg/dL (7-18)
[2023-07-19 09:05] LABS: ABG BASE EXCESS -9.4 mmol/L; ABG OXYGEN SATURATION 94.9 % (92.0-98.5); ABG PCO2 32.3 mmHg (35.0-45.0); ABG PH 7.307 (7.350-7.450); ABG PO2 85.9 mmHg (75.0-100.0); ABG TOTAL HEMOGLOBIN 12.8 G/dL (13.5-18.0); AaDO2 306.4 mmHg; COHb 0.4 % (0.5-1.5); MetHb 0.2 % (0.0-1.5); O2Hb 94.3 % (94.0-97.0); SITE, ABG Right Radial; VENT MODE, BG 20/5 60% RR 16
[2023-07-19] MEDS: HEPARIN SODIUM, PORCINE 5000 UNITS/1 ML VIAL SQ SCH (09:43)
[2023-07-19] MEDS: IV D5/ 0.9% NACL 1,000 ML IV PRN (13:24)
[2023-07-19] MEDS: methylPREDNISolone SOD SUCC 125 MG/2ML VIAL IV SCH (14:12)
[2023-07-19] MEDS: ALBUTEROL HALF STRENGTH 1.25 MG/3 ML VIAL.NEB NEB SCH (15:00)
[2023-07-19] MEDS: IPRATROPIUM NEB FS 0.5 MG/2.5 ML AMPUL.NEB NEB SCH (15:00)
[2023-07-19] MEDS: PROPOFOL 100 ML IV PRN (16:58)
[2023-07-19] MEDS ORDERED: LIDOCAINE 100MG/5ML DISP SYR IV ONE (18:17)
[2023-07-19] MEDS: VANCOMYCIN 1 GM in IV D5W 250ml IV ONE (19:21)
[2023-07-20] VITALS (97 sets, daily range): BP systolic 73–155; BP diastolic 41–84; TEMP 96.6–97.7; O2SAT 95–100
[2023-07-20 05:00] LABS: BASOPHILS % (AUTO) 0.1 % (0.0-2.0); HEMATOCRIT 25 % (39-51); HEMOGLOBIN 8.6 g/dL (13.5-17.5); LYMPHOCYTES # (AUTO) 0.2 K/uL (0.8-4.8); LYMPHOCYTES % (AUTO) 2.8 % (20.0-44.0); MEAN CORPUSCULAR HEMOGLOBIN 33 PG (26.0-33.0); MEAN CORPUSCULAR HGB CONC 34 g/dl (31.0-36.0); MEAN CORPUSCULAR VOLUME 97 fL (80-96); MONOCYTES # (AUTO) 0.1 K/uL (0.1-1.30); MONOCYTES % (AUTO) 1.3 % (2.0-12.0); NEUTROPHILS # (AUTO) 7.6 K/uL (1.8-8.9); NEUTROPHILS % (AUTO) 95.8 % (43.0-81.0); PLATELET COUNT (AUTO) 273 K/uL (150-450); RED CELL DISTRIBUTION WIDTH 16.4 % (11.5-15.0); WHITE BLOOD COUNT (AUTO) 7.9 K/uL (4.3-11.0)
[2023-07-20 05:25] LABS: CALCIUM, SERUM 9.9 mg/dL (8.5-10.1); CARBON DIOXIDE 16 mmol/L (21-32); CHLORIDE 107 mmol/L (98-107); CREATININE 2.3 mg/dL (0.6-1.3); GLUCOSE 264 mg/dL (74-106); MAGNESIUM 2.5 mg/dL (1.8-2.4); PHOSPHORUS 3.6 mg/dL (2.5-4.9); POTASSIUM 4.2 mmol/L (3.5-5.1); SODIUM SERUM 134 mmol/L (136-145); UREA NITROGEN, BLOOD 40 mg/dL (7-18)
[2023-07-20] MEDS ORDERED: NEPRO 1,000 ML BOTTLE GT PRN (10:30)
[2023-07-20] MEDS ORDERED: ACETAMINOPHEN 650 MG/20.3 ML UDC GT PRN (10:30)
[2023-07-20] MEDS: SODIUM CHLORIDE 1000 MG TABLET GT SCH (12:38)
[2023-07-20] MEDS: NEPRO 1,000 ML BOTTLE GT PRN (13:02)
[2023-07-20] MEDS: APIXABAN 2.5 MG TABLET GT SCH (16:50)
[2023-07-20] MEDS: METOPROLOL TARTRATE 25 MG TABLET GT SCH (16:51)
[2023-07-20] MEDS: ATORVASTATIN 40 MG TABLET GT SCH (17:02)
[2023-07-20] MEDS: AMLODIPINE BESYLATE 2.5 MG TABLET GT SCH (21:05)
[2023-07-20] MEDS: DEMECLOCYCLINE HCL 150 MG TABLET GT SCH (21:06)
[2023-07-21] VITALS (87 sets, daily range): BP systolic 69–169; BP diastolic 30–83; TEMP 97.5–98.5; O2SAT 91–100
[2023-07-21] MEDS: VANCOMYCIN 750 MG in IV D5W 250 ML IV SCH (05:00)
[2023-07-21 05:05] LABS: HEMATOCRIT 24 % (39-51); HEMOGLOBIN 8.2 g/dL (13.5-17.5); LYMPHOCYTES # (AUTO) 0.4 K/uL (0.8-4.8); LYMPHOCYTES % (AUTO) 4.5 % (20.0-44.0); MEAN CORPUSCULAR HEMOGLOBIN 33 PG (26.0-33.0); MEAN CORPUSCULAR HGB CONC 35 g/dl (31.0-36.0); MEAN CORPUSCULAR VOLUME 96 fL (80-96); MONOCYTES # (AUTO) 0.2 K/uL (0.1-1.30); MONOCYTES % (AUTO) 2.2 % (2.0-12.0); NEUTROPHILS # (AUTO) 7.7 K/uL (1.8-8.9); NEUTROPHILS % (AUTO) 93.3 % (43.0-81.0); PLATELET COUNT (AUTO) 340 K/uL (150-450); RED BLOOD CELL COUNT(AUTO) 2.48 MIL/uL (4.5-6.0); WHITE BLOOD COUNT (AUTO) 8.2 K/uL (4.3-11.0)
[2023-07-21 05:18] LABS: CALCIUM, SERUM 9.2 mg/dL (8.5-10.1); CARBON DIOXIDE 17 mmol/L (21-32); CHLORIDE 110 mmol/L (98-107); CREATININE 2.9 mg/dL (0.6-1.3); GLUCOSE 230 mg/dL (74-106); MAGNESIUM 2.2 mg/dL (1.8-2.4); PHOSPHORUS 3.4 mg/dL (2.5-4.9); POTASSIUM 4.2 mmol/L (3.5-5.1); SODIUM SERUM 138 mmol/L (136-145); UREA NITROGEN, BLOOD 49 mg/dL (7-18)
[2023-07-21 06:00] LABS: ABG BASE EXCESS -10.5 mmol/L; ABG OXYGEN SATURATION 96.5 % (92.0-98.5); ABG PH 7.365 (7.350-7.450); ABG PO2 97.3 mmHg (75.0-100.0); AaDO2 160.3 mmHg; COHb 0.3 % (0.5-1.5); MetHb 0.3 % (0.0-1.5); O2Hb 95.9 % (94.0-97.0); SITE, ABG Right Radial; VENT MODE, BG AC 24 500 40% +5
[2023-07-21] MEDS: ASPIRIN 81 MG TAB.CHEW GT SCH (08:44)
[2023-07-21] MEDS: CALCIUM CARBONATE (1250) 500 MG TABLET GT SCH (08:44)
[2023-07-22] VITALS (85 sets, daily range): BP systolic 85–151; BP diastolic 45–73; TEMP 95.9–97.6; O2SAT 9–100
[2023-07-22 05:14] LABS: HEMATOCRIT 24 % (39-51); HEMOGLOBIN 8.1 g/dL (13.5-17.5); LYMPHOCYTES # (AUTO) 0.4 K/uL (0.8-4.8); LYMPHOCYTES % (AUTO) 4.1 % (20.0-44.0); MEAN CORPUSCULAR HEMOGLOBIN 33 PG (26.0-33.0); MEAN CORPUSCULAR HGB CONC 34 g/dl (31.0-36.0); MEAN CORPUSCULAR VOLUME 97 fL (80-96); MONOCYTES # (AUTO) 0.3 K/uL (0.1-1.30); MONOCYTES % (AUTO) 2.7 % (2.0-12.0); NEUTROPHILS # (AUTO) 9.3 K/uL (1.8-8.9); NEUTROPHILS % (AUTO) 93.2 % (43.0-81.0); PLATELET COUNT (AUTO) 306 K/uL (150-450); RED BLOOD CELL COUNT(AUTO) 2.45 MIL/uL (4.5-6.0); RED CELL DISTRIBUTION WIDTH 17.4 % (11.5-15.0); WHITE BLOOD COUNT (AUTO) 9.9 K/uL (4.3-11.0)
[2023-07-22 05:32] LABS: CALCIUM, SERUM 8.9 mg/dL (8.5-10.1); CARBON DIOXIDE 16 mmol/L (21-32); CHLORIDE 109 mmol/L (98-107); CREATININE 3.2 mg/dL (0.6-1.3); GLUCOSE 210 mg/dL (74-106); MAGNESIUM 2.2 mg/dL (1.8-2.4); POTASSIUM 3.5 mmol/L (3.5-5.1); SODIUM SERUM 136 mmol/L (136-145); UREA NITROGEN, BLOOD 59 mg/dL (7-18)
[2023-07-22] MEDS: METOCLOPRAMIDE HCL 10 MG/2 ML VIAL IV SCH (09:43)
[2023-07-22 09:45] LABS: ABG BASE EXCESS -11.1 mmol/L; ABG OXYGEN SATURATION 97.4 % (92.0-98.5); ABG PCO2 22.8 mmHg (35.0-45.0); ABG PH 7.369 (7.350-7.450); ABG PO2 113.7 mmHg (75.0-100.0); ABG TOTAL HEMOGLOBIN 8.6 G/dL (13.5-18.0); AaDO2 145.3 mmHg; COHb 0.3 % (0.5-1.5); MetHb 0.2 % (0.0-1.5); O2Hb 96.9 % (94.0-97.0); PEEP,BG 5 cm H2O; SITE, ABG Right Radial; VENT MODE, BG AC 40%; VT, ABG 500 mL
[2023-07-22] MEDS: BUMETANIDE INJ 2 MG in IV NS 0.9% 32 ML IV ONE (09:45)
[2023-07-23] VITALS (81 sets, daily range): BP systolic 66–145; BP diastolic 38–62; TEMP 96.8–97.6; O2SAT 66–100
[2023-07-23 05:42] LABS: ABG BASE EXCESS -14.2 mmol/L; ABG OXYGEN SATURATION 83.9 % (92.0-98.5); ABG PCO2 26.7 mmHg (35.0-45.0); ABG PH 7.256 (7.350-7.450); ABG PO2 55.5 mmHg (75.0-100.0); COHb 0.1 % (0.5-1.5); MetHb 0.5 % (0.0-1.5); O2Hb 83.4 % (94.0-97.0); PEEP,BG 0 cm H2O; SITE, ABG Right Brachial; VENT MODE, BG AC 24 500 40% +0; VT, ABG 500 mL
[2023-07-23 07:26] LABS: CALCIUM, SERUM 8.2 mg/dL (8.5-10.1); CARBON DIOXIDE 14 mmol/L (21-32); CHLORIDE 109 mmol/L (98-107); CREATININE 3.5 mg/dL (0.6-1.3); GLUCOSE 214 mg/dL (74-106); POTASSIUM 3.3 mmol/L (3.5-5.1); SODIUM SERUM 136 mmol/L (136-145); UREA NITROGEN, BLOOD 71 mg/dL (7-18)
[2023-07-23] MEDS ORDERED: VANCOMYCIN 750 MG in IV D5W 250 ML IV SCH (09:00)
[2023-07-23 16:36] LABS: OCCULT BLOOD STOOL POSITIVE (NEGATIVE)
[2023-07-24] VITALS (60 sets, daily range): BP systolic 55–178; BP diastolic 33–85; TEMP 97.2–97.7; O2SAT 91–100
[2023-07-24 07:33] LABS: EOSINOPHILS % (AUTO) 0.1 % (0.0-6.0); LYMPHOCYTES # (AUTO) 0.3 K/uL (0.8-4.8); LYMPHOCYTES % (AUTO) 2.1 % (20.0-44.0); MEAN CORPUSCULAR HEMOGLOBIN 33 PG (26.0-33.0); MEAN CORPUSCULAR HGB CONC 34 g/dl (31.0-36.0); MEAN CORPUSCULAR VOLUME 96 fL (80-96); MONOCYTES # (AUTO) 0.5 K/uL (0.1-1.30); MONOCYTES % (AUTO) 3.8 % (2.0-12.0); NEUTROPHILS # (AUTO) 11.8 K/uL (1.8-8.9); PLATELET COUNT (AUTO) 225 K/uL (150-450); RED CELL DISTRIBUTION WIDTH 17.2 % (11.5-15.0); WHITE BLOOD COUNT (AUTO) 12.5 K/uL (4.3-11.0)
[2023-07-24 07:36] LABS: RED BLOOD CELL COUNT(AUTO) 1.99 MIL/uL (4.5-6.0)
[2023-07-24 07:41] LABS: HEMATOCRIT 19 % (39-51); HEMOGLOBIN 6.6 g/dL (13.5-17.5)
[2023-07-24 08:02] LABS: CALCIUM, SERUM 7.3 mg/dL (8.5-10.1); CARBON DIOXIDE 23 mmol/L (21-32); CHLORIDE 109 mmol/L (98-107); CREATININE 2.7 mg/dL (0.6-1.3); GLUCOSE 147 mg/dL (74-106); MAGNESIUM 1.7 mg/dL (1.8-2.4); PHOSPHORUS 2.8 mg/dL (2.5-4.9); SODIUM SERUM 140 mmol/L (136-145); UREA NITROGEN, BLOOD 53 mg/dL (7-18)
[2023-07-24 08:29] LABS: ABG BASE EXCESS -4.5 mmol/L; ABG OXYGEN SATURATION 93.7 % (92.0-98.5); ABG PCO2 28.1 mmHg (35.0-45.0); ABG PH 7.448 (7.350-7.450); ABG PO2 71.4 mmHg (75.0-100.0); AaDO2 181.5 mmHg; COHb 0.8 % (0.5-1.5); MetHb 0.6 % (0.0-1.5); O2Hb 92.4 % (94.0-97.0); SITE, ABG Right Radial; VENT MODE, BG AC 24 500 +5 40%
[2023-07-24 11:08] LABS: HEPATITIS B SURFACE AB Non Reactive (.)
[2023-07-24 11:22] LABS: ANISOCYTOSIS 1+; BAND % (MANUAL) 1 % (0.0-5.0); LYMPHOCYTES % (MANUAL) 2 % (16-48); METAMYELOCYTES % 1 % (0-0); MONOCYTES % (MANUAL) 4 % (0-11.0); NEUTROPHILS % (MANUAL) 92 (42-76); PLATELET ESTIMATE ADEQUATE
[2023-07-24 11:23] LABS: TARGET CELLS 1+
[2023-07-24] MEDS: PANTOPRAZOLE 40 MG VIAL IV SCH (14:04)
[2023-07-24 16:14] LABS: HEMOGLOBIN 7.9 g/dL (13.5-17.5)
[2023-07-25] VITALS (27 sets, daily range): BP systolic 95–145; BP diastolic 52–78; TEMP 97–98.1; O2SAT 91–100
[2023-07-25 07:39] LABS: CALCIUM, SERUM 7.2 mg/dL (8.5-10.1); CARBON DIOXIDE 24 mmol/L (21-32); CHLORIDE 103 mmol/L (98-107); CREATININE 2.3 mg/dL (0.6-1.3); GLUCOSE 120 mg/dL (74-106); PHOSPHORUS 3.3 mg/dL (2.5-4.9); POTASSIUM 3.8 mmol/L (3.5-5.1); SODIUM SERUM 138 mmol/L (136-145); UREA NITROGEN, BLOOD 63 mg/dL (7-18)
[2023-07-25 07:44] LABS: HEMATOCRIT 23 % (39-51); HEMOGLOBIN 7.6 g/dL (13.5-17.5); LYMPHOCYTES # (AUTO) 0.2 K/uL (0.8-4.8); LYMPHOCYTES % (AUTO) 1.7 % (20.0-44.0); MEAN CORPUSCULAR HEMOGLOBIN 31 PG (26.0-33.0); MEAN CORPUSCULAR HGB CONC 33 g/dl (31.0-36.0); MEAN CORPUSCULAR VOLUME 93 fL (80-96); MONOCYTES # (AUTO) 0.4 K/uL (0.1-1.30); MONOCYTES % (AUTO) 2.7 % (2.0-12.0); NEUTROPHILS # (AUTO) 13.2 K/uL (1.8-8.9); NEUTROPHILS % (AUTO) 95.6 % (43.0-81.0); PLATELET COUNT (AUTO) 163 K/uL (150-450); RED BLOOD CELL COUNT(AUTO) 2.44 MIL/uL (4.5-6.0); RED CELL DISTRIBUTION WIDTH 17.7 % (11.5-15.0); WHITE BLOOD COUNT (AUTO) 13.8 K/uL (4.3-11.0)
[2023-07-25 08:10] LABS: HEPATITIS B CORE AB, IgM Negative (Negative); HEPATITIS B CORE AB, TOTAL Negative (Negative); HEPATITIS B SURFACE AB Non Reactive (.)
[2023-07-25] MEDS: PANTOPRAZOLE 40 MG/PACK PACK NG SCH (08:18)
[2023-07-25 10:24] LABS: BAND % (MANUAL) 4 % (0.0-5.0); LYMPHOCYTES % (MANUAL) 2 % (16-48); MONOCYTES % (MANUAL) 3 % (0-11.0); NEUTROPHILS % (MANUAL) 91 (42-76); PLATELET ESTIMATE ADEQUATE
[2023-07-25] MEDS: ALBUMIN 25% 25 GM in PREMIX 1 EA IV PRN (10:28)
[2023-07-25] MEDS ORDERED: BISACODYL SUPP (10 MG) 10 MG/SUPP.RECT SUPP.RECT RC PRN (14:30)
[2023-07-25] MEDS: BISACODYL SUPP (10 MG) 10 MG/SUPP.RECT SUPP.RECT RC ONE (14:40)
[2023-07-25] MEDS ORDERED: ACETAMINOPHEN 650 MG/20.3 ML UDC NG PRN (16:56)
[2023-07-25] MEDS ORDERED: DOCUSATE SODIUM 100 MG CAPSULE PO SCH (17:00)
[2023-07-25] MEDS: DOCUSATE SODIUM LIQ 100 MG/10 ML UDC NG SCH (17:16)
[2023-07-25] MEDS: POLYETHYLENE GLYCOL 3350 17 GM POWD.PACK NG SCH (21:08)
[2023-07-25] MEDS: SENNOSIDES 8.6 MG TABLET NG SCH (21:08)
[2023-07-26] VITALS (85 sets, daily range): BP systolic 78–150; BP diastolic 41–78; TEMP 98–98.6; O2SAT 88–100
[2023-07-26 05:12] LABS: BASOPHILS % (AUTO) 0.1 % (0.0-2.0); LYMPHOCYTES # (AUTO) 0.2 K/uL (0.8-4.8); LYMPHOCYTES % (AUTO) 1.1 % (20.0-44.0); MEAN CORPUSCULAR HEMOGLOBIN 32 PG (26.0-33.0); MEAN CORPUSCULAR HGB CONC 34 g/dl (31.0-36.0); MEAN CORPUSCULAR VOLUME 94 fL (80-96); MONOCYTES # (AUTO) 0.3 K/uL (0.1-1.30); MONOCYTES % (AUTO) 1.7 % (2.0-12.0); NEUTROPHILS % (AUTO) 97.1 % (43.0-81.0); PLATELET COUNT (AUTO) 166 K/uL (150-450); RED CELL DISTRIBUTION WIDTH 17.4 % (11.5-15.0); WHITE BLOOD COUNT (AUTO) 15.5 K/uL (4.3-11.0)
[2023-07-26 05:18] LABS: HEMATOCRIT 19 % (39-51); HEMOGLOBIN 6.3 g/dL (13.5-17.5)
[2023-07-26] MEDS: NEPRO 1,000 ML BOTTLE NG PRN (05:34)
[2023-07-26 06:00] LABS: CALCIUM, SERUM 6.5 mg/dL (8.5-10.1); CARBON DIOXIDE 27 mmol/L (21-32); CHLORIDE 102 mmol/L (98-107); CREATININE 2.1 mg/dL (0.6-1.3); GLUCOSE 102 mg/dL (74-106); MAGNESIUM 1.9 mg/dL (1.8-2.4); PHOSPHORUS 2.8 mg/dL (2.5-4.9); POTASSIUM 3.7 mmol/L (3.5-5.1); SODIUM SERUM 139 mmol/L (136-145); UREA NITROGEN, BLOOD 64 mg/dL (7-18)
[2023-07-26] MEDS: methylPREDNISolone SOD SUCC 125 MG/2ML VIAL IV SCH (08:21)
[2023-07-26] MEDS: CALCIUM CARBONATE (1250) 500 MG TABLET NG SCH (08:22)
[2023-07-26] MEDS: NEOMY SULF/BACITRAC ZN/POLY 15 GM TUBE TP SCH (08:25)
[2023-07-26 10:19] LABS: BAND % (MANUAL) 5 % (0.0-5.0); LYMPHOCYTES % (MANUAL) 1 % (16-48); MONOCYTES % (MANUAL) 5 % (0-11.0); MYELOCYTES % 1 % (0-0); NEUTROPHILS % (MANUAL) 88 (42-76); PLATELET ESTIMATE ADEQUATE
[2023-07-26] MEDS: CADEXOMER IODINE 40 GM TUBE TP SCH (17:41)
[2023-07-26 18:05] LABS: BASOPHILS # (AUTO) 0.1 K/uL (0.0-0.2); BASOPHILS % (AUTO) 0.7 % (0.0-2.0); HEMATOCRIT 24 % (39-51); HEMOGLOBIN 7.9 g/dL (13.5-17.5); LYMPHOCYTES # (AUTO) 0.2 K/uL (0.8-4.8); LYMPHOCYTES % (AUTO) 1.3 % (20.0-44.0); MEAN CORPUSCULAR HEMOGLOBIN 31 PG (26.0-33.0); MEAN CORPUSCULAR HGB CONC 33 g/dl (31.0-36.0); MEAN CORPUSCULAR VOLUME 94 fL (80-96); MONOCYTES # (AUTO) 0.2 K/uL (0.1-1.30); NEUTROPHILS # (AUTO) 18.7 K/uL (1.8-8.9); PLATELET COUNT (AUTO) 170 K/uL (150-450); RED BLOOD CELL COUNT(AUTO) 2.54 MIL/uL (4.5-6.0); RED CELL DISTRIBUTION WIDTH 15.3 % (11.5-15.0); WHITE BLOOD COUNT (AUTO) 19.3 K/uL (4.3-11.0)
[2023-07-26 18:35] LABS: ANISOCYTOSIS 1+; BAND % (MANUAL) 4 % (0.0-5.0); LYMPHOCYTES % (MANUAL) 4 % (16-48); MONOCYTES % (MANUAL) 2 % (0-11.0); NEUTROPHILS % (MANUAL) 90 (42-76); PLATELET ESTIMATE ADEQUATE
[2023-07-26 18:36] LABS: HYPOCHROMASIA 1+; OVALOCYTES RARE; TARGET CELLS RARE
[2023-07-26 18:37] LABS: ROULEAUX 1+
[2023-07-26] MEDS: VANCOMYCIN POST DIALYSIS 500MG IV PRN (19:48)
[2023-07-27] VITALS (96 sets, daily range): BP systolic 86–181; BP diastolic 47–85; TEMP 98–98.5; O2SAT 92–100
[2023-07-27 08:41] LABS: ABG BASE EXCESS 4.1 mmol/L; ABG OXYGEN SATURATION 95.7 % (92.0-98.5); ABG PCO2 36.9 mmHg (35.0-45.0); ABG PH 7.493 (7.350-7.450); ABG PO2 82.9 mmHg (75.0-100.0); ABG TOTAL HEMOGLOBIN 7.9 G/dL (13.5-18.0); AaDO2 159.9 mmHg; COHb 0.3 % (0.5-1.5); MetHb 0.4 % (0.0-1.5); PEEP,BG 5 cm H2O; SITE, ABG Right Radial; VT, ABG 475 mL
[2023-07-28] VITALS (94 sets, daily range): BP systolic 73–153; BP diastolic 48–97; TEMP 98–99.3; O2SAT 75–100
[2023-07-28 05:16] LABS: BASOPHILS % (AUTO) 0.2 % (0.0-2.0); HEMATOCRIT 22 % (39-51); HEMOGLOBIN 7.5 g/dL (13.5-17.5); LYMPHOCYTES # (AUTO) 0.2 K/uL (0.8-4.8); LYMPHOCYTES % (AUTO) 1.2 % (20.0-44.0); MEAN CORPUSCULAR HEMOGLOBIN 32 PG (26.0-33.0); MEAN CORPUSCULAR HGB CONC 34 g/dl (31.0-36.0); MEAN CORPUSCULAR VOLUME 95 fL (80-96); MONOCYTES # (AUTO) 0.3 K/uL (0.1-1.30); NEUTROPHILS # (AUTO) 16.3 K/uL (1.8-8.9); NEUTROPHILS % (AUTO) 96.6 % (43.0-81.0); PLATELET COUNT (AUTO) 193 K/uL (150-450); RED BLOOD CELL COUNT(AUTO) 2.36 MIL/uL (4.5-6.0); RED CELL DISTRIBUTION WIDTH 15.7 % (11.5-15.0); WHITE BLOOD COUNT (AUTO) 16.8 K/uL (4.3-11.0)
[2023-07-28 05:35] LABS: CALCIUM, SERUM 7.2 mg/dL (8.5-10.1); CARBON DIOXIDE 26 mmol/L (21-32); CHLORIDE 98 mmol/L (98-107); CREATININE 2.4 mg/dL (0.6-1.3); GLUCOSE 155 mg/dL (74-106); PHOSPHORUS 3.8 mg/dL (2.5-4.9); POTASSIUM 4.2 mmol/L (3.5-5.1); SODIUM SERUM 135 mmol/L (136-145)
[2023-07-28 05:37] LABS: UREA NITROGEN, BLOOD 94 mg/dL (7-18)
[2023-07-28] MEDS: MORPHINE SULFATE INJ 2 MG/ML DISP.SYRIN IV PRN (18:10)
[2023-07-29] VITALS (19 sets, daily range): BP systolic 77–103; BP diastolic 36–53; TEMP 97.6–99; O2SAT 41–100
[2023-07-29] MEDS ORDERED: LORAZEPAM INJ 2 MG/ML VIAL ONE (16:15)
[2023-07-29] MEDS: LORAZEPAM INJ 2 MG/ML VIAL IV ONE (16:19)
[2023-07-29] MEDS ORDERED: DC PROPOFOL WHEN EXTUBATED XX PRN (16:50)
[2023-07-29] MEDS: MORPHINE SULFATE INJ 2 MG/ML DISP.SYRIN IV PRN (17:09)
== END 2023-07-29 19:28 | DRG 870 ==
LOC: ER 21:38 → TELE1 07-10 00:42 → ICU 07-17 07:37
PROVIDERS: ADMIT Internal Medicine; ATTEND Nurse Practitioner Acute Care
PROC: 5A09457 Assistance with Respiratory Ventilation, 24-96 Consecutive Hours, Continuous Positive Airway Pressure (ICD-10-PCS; 2023-07-17)
PROC: 05HC33Z Insertion of Infusion Device into Left Basilic Vein, Percutaneous Approach (ICD-10-PCS; 2023-07-17)
PROC: 5A1955Z Respiratory Ventilation, Greater than 96 Consecutive Hours (ICD-10-PCS; principal; 2023-07-19)
PROC: 0BH17EZ Insertion of Endotracheal Airway into Trachea, Via Natural or Artificial Opening (ICD-10-PCS; 2023-07-19)
PROC: 05HM33Z Insertion of Infusion Device into Right Internal Jugular Vein, Percutaneous Approach (ICD-10-PCS; 2023-07-22)
PROC: B543ZZA Ultrasonography of Right Jugular Veins, Guidance (ICD-10-PCS; 2023-07-22)
PROC: 5A1D70Z Performance of Urinary Filtration, Intermittent, Less than 6 Hours Per Day (ICD-10-PCS; 2023-07-23)
PROC: 30233N1 Transfusion of Nonautologous Red Blood Cells into Peripheral Vein, Percutaneous Approach (ICD-10-PCS; 2023-07-24)
DX: A41.9 Sepsis, unspecified organism (principal); E43 Unspecified severe protein-calorie malnutrition; J15.9 Unspecified bacterial pneumonia; J96.01 Acute respiratory failure with hypoxia; G93.41 Metabolic encephalopathy; N18.6 End stage renal disease; R53.2 Functional quadriplegia; N17.9 Acute kidney failure, unspecified; I12.0 Hypertensive chronic kidney disease with stage 5 chronic kidney disease or end stage renal disease; R64 Cachexia; J90 Pleural effusion, not elsewhere classified; E22.2 Syndrome of inappropriate secretion of antidiuretic hormone; K92.2 Gastrointestinal hemorrhage, unspecified; Z66 Do not resuscitate; Z51.5 Encounter for palliative care; R65.20 Severe sepsis without septic shock; R62.7 Adult failure to thrive; Z79.82 Long term (current) use of aspirin; Z79.899 Other long term (current) drug therapy; E86.0 Dehydration; E87.5 Hyperkalemia; D63.8 Anemia in other chronic diseases classified elsewhere; I25.10 Atherosclerotic heart disease of native coronary artery without angina pectoris; Z95.1 Presence of aortocoronary bypass graft; Z79.01 Long term (current) use of anticoagulants; Z99.2 Dependence on renal dialysis; E11.22 Type 2 diabetes mellitus with diabetic chronic kidney disease; Y95 Nosocomial condition; N50.89 Other specified disorders of the male genital organs; K59.00 Constipation, unspecified; I48.0 Paroxysmal atrial fibrillation; E88.09 Other disorders of plasma-protein metabolism, not elsewhere classified; Z96.649 Presence of unspecified artificial hip joint; F03.90 Unspecified dementia, unspecified severity, without behavioral disturbance, psychotic disturbance, mood disturbance, and anxiety; K63.9 Disease of intestine, unspecified
CPT/HCPCS: 31720; 36415; 36569; 36600; 70450-TC; 71045-TC; 71250-TC; 74018; 80048-TC; 80053-TC; 80076-TC; 80202-TC; 81001; 82272-TC; 82533; 82550-TC; 82803-TC; 82962-TC; 83605-TC; 83735-TC; 83935-TC; 83970; 84100-TC; 84155; 84165; 84295-TC; 84300-TC; 84443-TC; 84478-TC; 84484-TC; 84550-TC; 85025-TC; 85027-TC; 85730-TC; 86704; 86705; 86706; 86803; 86850-TC; 87040-TC; 87081-TC; 87086-TC; 87186-TC; 87340; 90935-TC; 92526; 92611-TC; 94002-TC; 94003-TC; 94640-TC; 94760-TC; 94761-TC; 94762-TC; 94799-TC; A4216; A4223; A4624; C9113; G0378; J0330; J0456; J0692; J1644; J2001; J2060; J2185; J2270; J2543; J2704; J2765; J2930; J3370; J3371; J3475; J3490; J7030; J7040; J7042; J7050; J7060; P9016; P9047